=== PATIENT | male | born 1960 | race Caucasian/White ===

== ENCOUNTER → 2021-05-16 | Outpatient (CLI) | payer MEDICAID ==
[~2021-05-16] MED LIST: ASPI81TA87 PO; IOHEXOL 350 MG/ML 75 ML VIAL ONE; LOSA50TA37 PO; METO-391 PO; ROSU10TA72 PO; SODIUM CHLORIDE 0.9% 100 ML ONE
== END | disposition home or self-care (01) ==
LOC: RADMN 10:03
PROVIDERS: ATTEND Internal Medicine
DX: I70.0 Atherosclerosis of aorta (principal); I51.7 Cardiomegaly; J98.11 Atelectasis; K76.89 Other specified diseases of liver; I26.99 Other pulmonary embolism without acute cor pulmonale
CPT/HCPCS: 71275; A9575; J7050